=== PATIENT | male | born 1955 | race Caucasian/White ===

== ENCOUNTER 2024-12-05 11:04 | Outpatient (CLI) | payer OTHER, SELFPAY ==
--- NOTE | ~2024-12-05 | XR_ITS ---
EXAMINATION: XR hip LT min 2V DATE: 12/05/2024 11:35 INDICATION: Left hip pain. TECHNIQUE: 2 views of left hip were obtained. COMPARISON: None. FINDINGS: There is a total left hip arthroplasty in near-anatomic alignment. No fracture. No peripros thetic lucency to suggest loosening or infection. 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 IMPRESSION: 1. Total left hip arthroplasty in near-anatomic alignment. Reviewed, dictated and finalized at location []
== END 2024-12-05 11:05 | disposition home or self-care (01) ==
LOC: MICIMG 11:14
DX: M25.552 Pain in left hip (principal)
CPT/HCPCS: 73502